=== PATIENT | male | born 1960 | race Caucasian/White ===

== ENCOUNTER 2019-05-02 10:21 | Day surgery (SDC) | payer BC ==
[2019-04-28 12:38] LABS: BASOPHILS % (AUTO) 0.7 % (0-1); EOSINOPHILS # (AUTO) 0.1 X10'3 (0-0.9); EOSINOPHILS % (AUTO) 1.6 % (0-6); HEMATOCRIT 46.7 % (42.0-52.0); HEMOGLOBIN 15.8 g/dl (14.0-17.9); LYMPHOCYTES % (AUTO) 34.9 % (21-51); MEAN CORPUSCULAR HEMOGLOBIN 30.2 PG (27.0-31.0); MEAN CORPUSCULAR HGB CONC 33.8 g/dL (33.0-36.5); MEAN CORPUSCULAR VOLUME 89.2 FL (78-98); MEAN PLATELET VOLUME 7.2 FL (7.4-10.4); MONOCYTES # (AUTO) 0.5 X10'3 (0-0.9); MONOCYTES % (AUTO) 8.1 % (2-12); NEUTROPHILS # (AUTO) 3.2 X10'3 (1.8-7.7); NEUTROPHILS % (AUTO) 54.7 % (42-75); PLATELET COUNT 221 X10'3 (140-440); RED BLOOD COUNT 5.23 X10'6 (4.70-6.10); RED CELL DISTRIBUTION WIDTH 13.3 % (11.5-14.5); WHITE BLOOD COUNT 5.8 X10'3 (4.5-11.0)
[2019-04-28 12:48] LABS: PARTIAL THROMBOPLASTIN TIME 28 SECONDS (22-32)
[2019-04-28 12:57] LABS: ALANINE AMINOTRANSFERASE 61 U/L (12-78); ALBUMIN 4.1 G/DL (3.4-5.0); ALBUMIN/GLOBULIN RATIO 1.4 (1.1-1.5); ALKALINE PHOSPHATASE 102 IU/L (46-116); ANION GAP 8 (8-16); ASPARTATE AMINO TRANSFERASE 31 U/L (10-37); BILIRUBIN,TOTAL 0.5 MG/DL (0.1-1.0); BLOOD UREA NITROGEN 10 MG/DL (7-18); BUN/CREATININE RATIO 9.1 (5.4-32.0); CALCIUM 9.1 MG/DL (8.5-10.1); CHLORIDE 106 MMOL/L (99-107); GLUCOSE 94 MG/DL (70-104); POTASSIUM 4.3 MMOL/L (3.5-5.1); SODIUM 141 MMOL/L (135-145); TOTAL CARBON DIOXIDE 27.1 MMOL/L (24-32); eGFR 68 ML/MIN
[~2019-05-02] VITALS: Ht 177.8 cm; Wt 98.8 kg
[2019-05-02] VITALS (19 sets, daily range): BP systolic 121–145; BP diastolic 66–84
[2019-05-02] MEDS ORDERED: nitroGLYCERIN 0.4mg SUBLingual tab SL PRN (10:35)
[2019-05-02] MEDS ORDERED: LORazepam 0.5 MG tablet PO PRN (10:35)
[2019-05-02] MEDS ORDERED: normal saline 1,000 ML IV SCH (10:35)
[2019-05-02] MEDS ORDERED: diphenhydrAMINE 25mg capsule PO PRN (10:35)
[2019-05-02] MEDS ORDERED: LEVO100T PO (10:49)
[2019-05-02] MEDS ORDERED: SIMV40TA4 PO (10:49)
[2019-05-02] MEDS ORDERED: ASPI-611 PO (10:49)
[2019-05-02] MEDS ORDERED: VITAMIN D (11:04)
[2019-05-02] MEDS ORDERED: GARLIC (11:04)
[2019-05-02] MEDS ORDERED: FISH OIL (11:04)
[2019-05-02] MEDS ORDERED: VITAMIN B (11:04)
[2019-05-02] MEDS ORDERED: NIACIN (11:04)
[2019-05-02] MEDS ORDERED: CO Q-10 (11:04)
[2019-05-02] MEDS ORDERED: MULT-1085 PO (11:04)
[2019-05-02] MEDS ORDERED: midazolam 2 mg/2 ml injection ONE ×2 (12:05→12:33)
[2019-05-02] MEDS ORDERED: LIDOcaine 1% (10mg/ml)w/preservative injection 20ml MDV ONE (12:05)
[2019-05-02] MEDS ORDERED: fentaNYL/PF 50MCG/1 ML 2ML syringe ONE (12:05)
[2019-05-02] MEDS ORDERED: iohexol 350MG/ML 100ml bottle IV ONE (12:06)
[2019-05-02] MEDS ORDERED: iohexol 350 MG/ML 50ML vial IV ONE ×2 (12:06→12:50)
[2019-05-02] MEDS ORDERED: OXAZEpam 15mg capsule PO PRN (13:25)
[2019-05-02] MEDS ORDERED: HYDROcodone/acetaminophen 5mg/325mg tablet PO PRN (13:25)
[2019-05-02] MEDS ORDERED: ondansetron/PF 4mg/2ml inj IV PRN (13:25)
[2019-05-02] MEDS ORDERED: proCHLORperazine 10 MG/2 ml inj IV PRN (13:25)
[2019-05-02] MEDS ORDERED: HYDROcodone/acetaminophen 10/325mg tab PO PRN (13:25)
--- NOTE | 2019-05-02 16:40 | NUR ---
Pt c/o chest pain/pressure. VS 131/78 Hr 50's. Will give Nitro and do EKG.
--- NOTE | 2019-05-02 16:50 | NUR ---
EKG faxed to Dr. Alvares' office. Pt's CP subsided after Nitro x 1 dose.
--- NOTE | 2019-05-02 17:12 | NUR ---
Spoke with Dr. Alvares states EKG had no changes. No further orders at this time.
== END 2019-05-02 18:53 | disposition home or self-care (01) ==
LOC: SSTAY O 10:21
PROVIDERS: ATTEND Internal Medicine Cardiovascular Disease
DX: I25.10 Atherosclerotic heart disease of native coronary artery without angina pectoris (principal); I25.82 Chronic total occlusion of coronary artery
CPT/HCPCS: 36415; 71046; 80053; 85025; 85610; 85730; 93459; 99152; 99153; A6257; C1769; J1644; J2001; J2250; J3010; J7030; Q0163; Q9967; 93005; A4620; C1760

== ENCOUNTER 2019-05-05 11:05 | Emergency (ER) | payer BC ==
[~2019-05-05] VITALS: Ht 185.4 cm; Wt 98.6 kg
[~2019-05-05 11:05] MED LIST: ASPI-611 PO; CO Q-10; FISH OIL; GARLIC; LEVO100T PO; MULT-1085 PO; NIACIN; SIMV40TA4 PO; VITAMIN B; VITAMIN D
[2019-05-05 12:01] LABS: BASOPHILS % (AUTO) 0.6 % (0-1); EOSINOPHILS # (AUTO) 0.1 X10'3 (0-0.9); EOSINOPHILS % (AUTO) 1.7 % (0-6); HEMATOCRIT 46.5 % (42.0-52.0); HEMOGLOBIN 15.8 g/dl (14.0-17.9); LYMPHOCYTES # (AUTO) 2.7 X10'3 (1.1-4.8); LYMPHOCYTES % (AUTO) 41.5 % (21-51); MEAN CORPUSCULAR HEMOGLOBIN 30.3 PG (27.0-31.0); MEAN CORPUSCULAR VOLUME 89.1 FL (78-98); MEAN PLATELET VOLUME 7.4 FL (7.4-10.4); MONOCYTES # (AUTO) 0.6 X10'3 (0-0.9); MONOCYTES % (AUTO) 9.2 % (2-12); NEUTROPHILS # (AUTO) 3.1 X10'3 (1.8-7.7); PLATELET COUNT 210 X10'3 (140-440); RED BLOOD COUNT 5.22 X10'6 (4.70-6.10); RED CELL DISTRIBUTION WIDTH 13.3 % (11.5-14.5); WHITE BLOOD COUNT 6.6 X10'3 (4.5-11.0)
[2019-05-05 12:10] LABS: ALANINE AMINOTRANSFERASE 59 U/L (12-78); ALBUMIN 3.9 G/DL (3.4-5.0); ALBUMIN/GLOBULIN RATIO 1.3 (1.1-1.5); ALKALINE PHOSPHATASE 108 IU/L (46-116); ANION GAP 6 (8-16); ASPARTATE AMINO TRANSFERASE 31 U/L (10-37); BILIRUBIN,TOTAL 0.6 MG/DL (0.1-1.0); BLOOD UREA NITROGEN 14 MG/DL (7-18); BUN/CREATININE RATIO 12.5 (5.4-32.0); CHLORIDE 105 MMOL/L (99-107); CREATININE 1.12 MG/DL (0.60-1.10); GLUCOSE 101 MG/DL (70-104); PARTIAL THROMBOPLASTIN TIME 29 SECONDS (22-32); POTASSIUM 3.9 MMOL/L (3.5-5.1); SODIUM 139 MMOL/L (135-145); TOTAL CARBON DIOXIDE 27.7 MMOL/L (24-32); eGFR 67 ML/MIN
--- NOTE | 2019-05-05 12:56 | NUR ---
PER DR SARKAR, DR BENITO REQUESTED THAT WEIGHT BE PLACED ON PT'S GROIN FOR 20 MIN. SAND BAG WAS APPLIED TO PT'S RT GROIN FOR 20 MIN, REMOVED AFTER TIME WAS UP, NO LEAKING NOTED ON RT GROIN.
[2019-05-05 13:13] VITALS: BP 131/81
== END 2019-05-05 13:49 | disposition home or self-care (01) ==
LOC: ER 11:06
DX: I97.630 Postprocedural hematoma of a circulatory system organ or structure following a cardiac catheterization (principal); Z88.1 Allergy status to other antibiotic agents; Z79.82 Long term (current) use of aspirin; Z79.899 Other long term (current) drug therapy
CPT/HCPCS: 36415; 80053; 85025; 85610; 85730; 93926; 99284